=== PATIENT | male | born 1995 ===

== ENCOUNTER 2023-02-13 19:00 | Outpatient (CLI) | payer BC, SELFPAY ==
[2023-02-15 14:52] LABS: TB Interpretation Negative (Negative)
== END 2023-02-13 19:01 | disposition home or self-care (01) ==
LOC: LBO 19:01
PROVIDERS: PCP Family Medicine; Visit Provider Family Medicine
DX: Z00.00 Encounter for general adult medical examination without abnormal findings (principal)
CPT/HCPCS: 36415; 86480

== ENCOUNTER 2023-07-21 14:59 | Outpatient (REF) | payer BC, SELFPAY ==
[2023-07-21 16:26] LABS: Calculated LDL 130 mg/dL (<100); Cholesterol 195 mg/dL (<200); HDL Cholesterol 45 mg/dL (40-60); Triglyceride 103 mg/dL (<150)
[2023-07-22 10:23] LABS: HIV-1/2 Ag & Ab Screen Negative (Negative)
[2023-07-24 09:53] LABS: HBs Antibody, Quant 5.2 mIU/mL (See Note); Hepatitis B Surface Ab Negative (See Note)
[2023-07-24 10:07] LABS: Hepatitis B Surface Ag Negative (Negative)
[2023-07-24 10:39] LABS: Hep B Core Antibody Negative (Negative)
[2023-07-24 11:04] LABS: Hepatitis C Ab w Rflx HCV PCR Negative (Negative)
== END 2023-07-21 15:00 | disposition home or self-care (01) ==
LOC: NCHCN 14:59
PROVIDERS: PCP Family Medicine; Referring Provider Family Medicine; Visit Provider Family Medicine
DX: Z00.00 Encounter for general adult medical examination without abnormal findings (principal); Z13.1 Encounter for screening for diabetes mellitus; Z11.59 Encounter for screening for other viral diseases; Z13.220 Encounter for screening for lipoid disorders; Z11.4 Encounter for screening for human immunodeficiency virus [HIV]
CPT/HCPCS: 80061; 86704; 86706; 86803; 87340; 87389; 83036

== ENCOUNTER 2024-07-09 18:53 | Outpatient (REF) | payer BC, SELFPAY | END 2024-07-09 18:54 | disposition home or self-care (01) | LOC: LBN 18:53 | PROVIDERS: PCP Family Medicine; Visit Provider Nurse Practitioner Family | DX: L03.316 Cellulitis of umbilicus (principal) | CPT/HCPCS: 87070; 87205 ==

== ENCOUNTER 2024-08-30 08:45 | Outpatient (CLI) | payer BC, SELFPAY ==
[2024-08-30 09:05] LABS: Hemoglobin A1C 5.2 % (<5.7)
[2024-08-30 09:18] LABS: ALT 46 U/L (16-63); AST 16 U/L (15-37); Albumin 4.5 g/dL (3.4-5.0); Alkaline Phosphatase 74 U/L (46-116); BUN 16 mg/dL (7-18); Bilirubin, Total 0.6 mg/dL (0.2-1.0); CREATININE 1.1 mg/dL (0.70-1.30); Calcium 9.6 mg/dL (8.5-10.1); Calculated LDL 130 mg/dL (<100); Chloride 106 mmol/L (98-107); Cholesterol 193 mg/dL (<200); Estimated GFR 93.77 (mL/min/1.73m2); Glucose 97 mg/dL (74-106); HDL Cholesterol 47 mg/dL (>or=40); Potassium 3.8 mmol/L (3.5-5.1); Sodium 143 mmol/L (136-145); TSH 1.96 uIU/mL (0.36-3.74); Triglyceride 81 mg/dL (<150)
[2024-09-04 13:39] LABS: Testosterone, Total 271 ng/dL (240-950)
== END 2024-08-30 08:46 | disposition home or self-care (01) ==
LOC: LBO 08:45
PROVIDERS: PCP Family Medicine; Visit Provider Nurse Practitioner Family
DX: Z00.01 Encounter for general adult medical examination with abnormal findings (principal)
CPT/HCPCS: 36415; 80053; 80061; 84403; 83036; 84443

== ENCOUNTER 2024-11-04 10:55 | Outpatient (CLI) | payer BC, SELFPAY ==
[2024-11-04 10:19] LABS: ALT 46 U/L (16-63); AST 19 U/L (15-37); Albumin 4.4 g/dL (3.4-5.0); Alkaline Phosphatase 77 U/L (46-116); BUN 11 mg/dL (7-18); Bilirubin, Total 0.6 mg/dL (0.2-1.0); CREATININE 0.8 mg/dL (0.70-1.30); Calcium 9.5 mg/dL (8.5-10.1); Chloride 102 mmol/L (98-107); Estimated GFR 123.63 (mL/min/1.73m2); Glucose 97 mg/dL (74-106); Potassium 3.6 mmol/L (3.5-5.1); Sodium 142 mmol/L (136-145)
[2024-11-13 15:15] LABS: Testosterone, Free 10.2 ng/dL (5.05-19.8); Testosterone, Total 365 ng/dL (240-950)
== END 2024-11-04 10:56 | disposition home or self-care (01) ==
LOC: LBO 10:55
PROVIDERS: PCP Family Medicine; Visit Provider Nurse Practitioner Family
DX: Z00.01 Encounter for general adult medical examination with abnormal findings (principal); R53.83 Other fatigue
CPT/HCPCS: 36415; 80053; 84402; 84403